=== PATIENT | female | born 2000 | race Hispanic/Latino ===

== ENCOUNTER → 2022-05-20 13:06 | Outpatient (CLI) | payer OTHER, SELFPAY ==
[2022-05-20 19:38] LABS: Add Manual Diff / Slide Review NO; Basophils Absolute Auto 100 /uL (0-100); Basophils Percent Auto 0.9 % (0-2); Eosinophils Absolute Auto 100 /uL (0-450); Eosinophils Percent Auto 0.9 % (2-4); Hematocrit 40.5 % (36-46); Hemoglobin 13.7 g/dL (12.0-16.0); Lymphocytes Absolute Auto 1700 /uL (1100-4500); Lymphocytes Percent Auto 21.2 % (25-40); Mean Corpuscular HGB Conc 33.9 % (30-36); Mean Corpuscular Hemoglobin 28.4 PG (26-34); Mean Corpuscular Volume 83.7 fL (80-100); Monocytes Absolute Auto 600 /uL (0-900); Neutrophils Absolute Auto 5600 /uL (1500-7000); Platelet Count 384 X10^3/uL (150-400); Red Blood Cell Count 4.84 X10^6/uL (4.0-5.2); Red Cell Distribution Width 13.6 % (11.6-14.8)
[2022-05-20 19:39] LABS: Hemoglobin A1C% w Est Avg Glu 5.5 % (4.0-6.0)
[2022-05-20 19:43] LABS: HEMOLYSIS < 15 (0-50); Iron 104 ug/dL (37-170)
[2022-05-20 19:46] LABS: Alanine Aminotransferase 13 IU/L (<35); Albumin 4.9 g/dL (3.5-5.0); Albumin Globulin Ratio 1.5 (1.0-2.8); Alkaline Phosphatase 79 U/L (38-126); Aspartate Aminotransferase 28 IU/L (14-36); BUN Creatinine Ratio 17.2 (6-22); Bilirubin Total 0.5 mg/dL (0.2-1.3); Blood Urea Nitrogen 11 mg/dL (7-17); Calcium 9.8 mg/dL (8.4-10.2); Carbon Dioxide 29 mmol/L (22-32); Chloride 102 mmol/L (98-107); Estimated Glomerular Filt Rate > 60 mL/min (>60); Globulin 3.2 g/dL (1.7-4.1); Glucose 82 mg/dL (70-100); HEMOLYSIS < 15 (0-50); Potassium 4.2 mmol/L (3.4-5.1); Sodium 142 mmol/L (137-145); Total Protein 8.1 g/dL (6.3-8.2)
[2022-05-20 19:55] LABS: Percent Iron Saturation 24 % (15-50); Total Iron Binding Capacity 425 ug/dL (265-497); Transferrin 320 mg/dL (206-381)
[2022-05-20 20:01] LABS: Vitamin D 25 Hydroxy (D3) 25.9 ng/mL (30.0-100.0)
[2022-05-20 20:17] LABS: Thyroid Stimulating Hormone 2.07 uIU/mL (0.47-4.68)
[2022-05-20 20:21] LABS: Testosterone 83.3 ng/dL (5.71-77.0)
[2022-05-20 20:55] LABS: Folate 12.8 ng/mL (2.76-20.0); Vitamin B12 276 pg/mL (239-931)
== END ==
PROVIDERS: Physician Assistant; PCP Family Medicine
DX: E55.9 Vitamin D deficiency, unspecified (principal); L65.9 Nonscarring hair loss, unspecified; N92.6 Irregular menstruation, unspecified
CPT/HCPCS: 80053; 82306; 82607; 82627; 82746; 83036; 83498; 83540; 83550; 84403; 84443; 85025

== ENCOUNTER → 2022-07-19 14:53 | Outpatient (CLI) | payer OTHER, SELFPAY ==
[2022-07-19 19:43] LABS: BUN Creatinine Ratio 18.8 (6-22); Blood Urea Nitrogen 13 mg/dL (7-17); Calcium 9.7 mg/dL (8.4-10.2); Carbon Dioxide 19 mmol/L (22-32); Chloride 100 mmol/L (98-107); Estimated Glomerular Filt Rate > 60 mL/min (>60); Glucose 91 mg/dL (70-100); HEMOLYSIS < 15 (0-50); Potassium 4.1 mmol/L (3.4-5.1); Sodium 138 mmol/L (137-145)
== END ==
PROVIDERS: PCP Family Medicine
DX: E28.2 Polycystic ovarian syndrome (principal); L68.0 Hirsutism; L70.9 Acne, unspecified
CPT/HCPCS: 80048

== ENCOUNTER → 2024-05-13 10:06 | Outpatient (CLI) | payer OTHER, SELFPAY ==
[2024-05-13 20:02] LABS: Alanine Aminotransferase 14 IU/L (<35); Albumin 4.2 g/dL (3.5-5.0); Albumin Globulin Ratio 1.3 (1.0-2.8); Alkaline Phosphatase 66 U/L (38-126); Aspartate Aminotransferase 26 IU/L (14-36); BUN Creatinine Ratio 19.4 (6-22); Bilirubin Total 0.5 mg/dL (0.2-1.3); Blood Urea Nitrogen 12 mg/dL (7-17); Calcium 9.4 mg/dL (8.4-10.2); Carbon Dioxide 23 mmol/L (22-32); Chloride 107 mmol/L (98-107); Cholesterol 255 mg/dL (140-199); Estimated Glomerular Filt Rate > 60 mL/min (>60); Globulin 3.3 g/dL (1.7-4.1); Glucose 95 mg/dL (70-100); HDL Cholesterol 58 mg/dL (40-60); HEMOLYSIS < 15 (0-50); LDL Cholesterol Calculated 163 mg/dL (<100); Potassium 4.2 mmol/L (3.4-5.1); Sodium 138 mmol/L (137-145); Total Protein 7.5 g/dL (6.3-8.2); Triglycerides 172 mg/dL (35-150)
[2024-05-13 20:24] LABS: Add Manual Diff / Slide Review NO; Basophils Absolute Auto 0 /uL (0-100); Basophils Percent Auto 0.6 % (0-2); Eosinophils Absolute Auto 100 /uL (0-450); Hematocrit 40.3 % (36-46); Hemoglobin 13.5 g/dL (12.0-16.0); Lymphocytes Absolute Auto 1900 /uL (1100-4500); Lymphocytes Percent Auto 40.8 % (25-40); Mean Corpuscular HGB Conc 33.5 % (30-36); Mean Corpuscular Hemoglobin 27.5 PG (26-34); Mean Corpuscular Volume 82.1 fL (80-100); Monocytes Absolute Auto 300 /uL (0-900); Monocytes Percent Auto 6.8 % (3-14); Neutrophils Absolute Auto 2400 /uL (1500-7000); Neutrophils Percent Auto 49.8 % (50-75); Platelet Count 324 X10^3/uL (150-400); Red Blood Cell Count 4.91 X10^6/uL (4.0-5.2); Red Cell Distribution Width 16.5 % (11.6-14.8); White Blood Cell Count 4.7 X10^3/uL (4.5-11.0)
[2024-05-13 20:33] LABS: TSH w/ Reflex to FT4 0.96 uIU/mL (0.47-4.68)
[2024-05-13 20:36] LABS: Ferritin 11 ng/mL (6-137)
[2024-05-13 20:51] LABS: Vitamin B12 306 pg/mL (239-931)
== END ==
PROVIDERS: Visit Provider Nurse Practitioner Adult Health
DX: E28.2 Polycystic ovarian syndrome (principal); N91.3 Primary oligomenorrhea; L63.9 Alopecia areata, unspecified
CPT/HCPCS: 80053; 80061; 82607; 82627; 82728; 84402; 84403; 84443; 85025

== ENCOUNTER → 2024-11-12 10:28 | Outpatient (CLI) | payer OTHER, SELFPAY ==
[2024-11-12 14:40] LABS: Basophils Percent Auto 0.3 % (0-2); Eosinophils Percent Auto 1.3 % (2-4); Hematocrit 42.5 % (36-46); Hemoglobin 14.5 g/dL (12.0-16.0); Lymphocytes Percent Auto 34.1 % (25-40); Mean Corpuscular Hemoglobin 29.4 PG (26-34); Mean Corpuscular Volume 86.5 fL (80-100); Monocytes Percent Auto 8.2 % (3-14); Neutrophils Percent Auto 56.1 % (50-75); Platelet Count 325 X10^3/uL (150-400); Red Blood Cell Count 4.92 X10^6/uL (4.0-5.2); Red Cell Distribution Width 13.2 % (11.6-14.8); White Blood Cell Count 6.6 X10^3/uL (4.5-11.0)
[2024-11-12 14:41] LABS: Add Manual Diff / Slide Review NO; Basophils Absolute Auto 0 /uL (0-100); Eosinophils Absolute Auto 100 /uL (0-450); Lymphocytes Absolute Auto 2200 /uL (1100-4500); Monocytes Absolute Auto 500 /uL (0-900); Neutrophils Absolute Auto 3700 /uL (1500-7000)
[2024-11-12 14:49] LABS: Alanine Aminotransferase 18 IU/L (<35); Albumin 4.5 g/dL (3.5-5.0); Albumin Globulin Ratio 1.6 (1.0-2.8); Alkaline Phosphatase 75 U/L (38-126); Aspartate Aminotransferase 28 IU/L (14-36); BUN Creatinine Ratio 22.5 (6-22); Bilirubin Total 0.5 mg/dL (0.2-1.3); Blood Urea Nitrogen 16 mg/dL (7-17); Calcium 9.7 mg/dL (8.4-10.2); Carbon Dioxide 26 mmol/L (22-32); Chloride 104 mmol/L (98-107); Cholesterol 179 mg/dL (140-199); Estimated Glomerular Filt Rate > 60 mL/min (>60); Globulin 2.8 g/dL (1.7-4.1); Glucose 86 mg/dL (70-100); HDL Cholesterol 52 mg/dL (40-60); HEMOLYSIS < 15 (0-50); LDL Cholesterol Calculated 104 mg/dL (<100); Potassium 4.2 mmol/L (3.4-5.1); Sodium 138 mmol/L (137-145); Total Protein 7.3 g/dL (6.3-8.2); Triglycerides 116 mg/dL (35-150)
== END ==
PROVIDERS: PCP Nurse Practitioner Adult Health; Visit Provider Nurse Practitioner Adult Health
DX: E28.2 Polycystic ovarian syndrome (principal); N91.3 Primary oligomenorrhea
CPT/HCPCS: 80053; 80061; 82397; 82627; 84403; 85025